=== PATIENT | male | born 1945 | race Caucasian/White ===

== ENCOUNTER 2023-05-24 19:00 | Observation (INO) | payer MEDICARE, BC ==
[~2023-05-24 19:00] MED LIST: Iopamidol 370 76% 100 ML VIAL ONE
[2023-05-24] MEDS ORDERED: Aspirin Chewable 81 MG TAB ONE (19:42)
[2023-05-24 19:47] LABS: #Eosinphils 0.2 10x3/uL (0.0-0.5); #Monocytes 0.8 10x3/uL (0.0-1.1); #Neutrophils 6.2 10x3/uL (1.5-8.4); %Basophils 0.4 % (0.0-2.0); %Eosinophils 2.8 % (0.0-6.0); %Lymphocytes 14.2 % (18.0-47.0); %Monocytes 9.6 % (0.0-10.0); %Neutrophils 72.6 % (40.0-75.0); Hematocrit 37.1 % (38.8-50.0); Hemoglobin 12.1 g/dL (13.5-17.5); Mean Corpuscular HGB CONC 32.6 g/dL (32.0-36.0); Mean Corpuscular Hemoglobin 27.8 pg (27.0-33.0); Mean Corpuscular Volume 85.3 fl (81.2-95.1); Mean Platelet Volume 10.4 fl (7.4-10.4); Platelet Count 197 10x3/uL (150-450); RBC Distribution Width 14.5 % (11.5-14.5); Red Blood Cell (RBC) Count 4.35 10x6/uL (4.32-5.72); White Blood Cell (WBC) Count 8.5 10x3/uL (3.5-10.5)
[2023-05-24 20:00] LABS: ALT (SGPT) 17 U/L (8-55); AST (SGOT) 20 U/L (5-34); Albumin 3.9 g/dL (3.4-4.8); Alkaline Phosphatase 49 U/L (40-110); Anion Gap 16 mmol/L (10-20); BUN (Urea Nitrogen) 13 mg/dL (8.4-25.7); Bilirubin, Total 0.5 mg/dL (0.2-1.2); Calc. Creatinine Clearance 0 mL/min (70-130); Calcium 8.7 mg/dL (7.8-10.44); Carbon Dioxide 20 mmol/L (23-31); Chloride 105 mmol/L (98-107); Estimated GFR 75; Globulin 2.7 g/dL (2.4-3.5); Glucose 138 mg/dL (83-110); Magnesium 1.8 mg/dL (1.6-2.6); Potassium 4.4 mmol/L (3.5-5.1); Protein, Total 6.6 g/dL (5.8-8.1); Sodium 137 mmol/L (136-145)
[2023-05-24] MEDS ORDERED: Acetaminophen 325 MG TAB PO PRN (21:57)
[2023-05-24] MEDS ORDERED: Dextrose 50% Abboject 50 ML SYRINGE SLOW IVP PRN (22:07)
[2023-05-24] MEDS ORDERED: Dextrose 5% in Water 1,000 ML IV PRN (22:07)
[2023-05-24] MEDS ORDERED: Glucagon 1 MG/ML KIT IM PRN (22:07)
[2023-05-24] MEDS ORDERED: HumaLOG 300 UNITS/3 ML VIAL SC PRN ×2 (22:07)
[2023-05-24 23:30] VITALS: BMI 32.8
[2023-05-24] MEDS: HYDROcodone/Acetaminophen 10/325 mg Tablet PO PRN (23:34)
[2023-05-24 23:35] LABS: Iron 29 ug/dL (65-175); Iron Binding Capacity, Total 306 mcg/dL (261-462)
[2023-05-24 23:37] LABS: Actual Bicarbonate (HCO3v) 19.4 mEq/L (22-28); Base Excess -1.4 mEq/L (-2 - +2); Calcium, Ionized (venous) 0.97 mmol/L (1.16-1.32); Chloride (VBG) 106 mmol/L (98-106); Hematocrit-VBG 39 % (42.0-52.0); Hemoglobin (Hb) 13.1 g/dL (12.6-17.4); Potassium (VBG) 4.36 mmol/L (3.70-5.30); Puncture Site Other Site; RapidComm Collect By LAB; Sodium 134.1 mmol/L (133-146); pH (venous) 7.543 (7.32-7.43)
[2023-05-25 02:18] LABS: #Eosinphils 0.2 10x3/uL (0.0-0.5); #Monocytes 0.7 10x3/uL (0.0-1.1); #Neutrophils 4.5 10x3/uL (1.5-8.4); %Basophils 0.3 % (0.0-2.0); %Eosinophils 3.1 % (0.0-6.0); %Lymphocytes 19.1 % (18.0-47.0); %Monocytes 9.7 % (0.0-10.0); %Neutrophils 67.7 % (40.0-75.0); Hematocrit 34.8 % (38.8-50.0); Hemoglobin 11.5 g/dL (13.5-17.5); Mean Corpuscular Volume 84.7 fl (81.2-95.1); Mean Platelet Volume 9.8 fl (7.4-10.4); Platelet Count 186 10x3/uL (150-450); RBC Distribution Width 14.6 % (11.5-14.5); Red Blood Cell (RBC) Count 4.11 10x6/uL (4.32-5.72); White Blood Cell (WBC) Count 6.7 10x3/uL (3.5-10.5)
[2023-05-25 02:38] LABS: ALT (SGPT) 15 U/L (8-55); AST (SGOT) 17 U/L (5-34); Albumin 3.6 g/dL (3.4-4.8); Alkaline Phosphatase 43 U/L (40-110); Anion Gap 14 mmol/L (10-20); BUN (Urea Nitrogen) 13 mg/dL (8.4-25.7); Bilirubin, Total 0.6 mg/dL (0.2-1.2); Calc. Creatinine Clearance 124 mL/min (70-130); Calcium 8.5 mg/dL (7.8-10.44); Carbon Dioxide 22 mmol/L (23-31); Chloride 105 mmol/L (98-107); Estimated GFR 89; Globulin 2.5 g/dL (2.4-3.5); Glucose 149 mg/dL (83-110); Potassium 4.1 mmol/L (3.5-5.1); Protein, Total 6.1 g/dL (5.8-8.1); Sodium 137 mmol/L (136-145)
[2023-05-25 02:44] LABS: Troponin I Less than 0.010 ng/mL (< 0.028)
[2023-05-25] MEDS: HYDROcodone/Acetaminophen 10/325 mg Tablet PO PRN (06:20)
[2023-05-25 06:43] LABS: Troponin I Less than 0.010 ng/mL (< 0.028)
[2023-05-25 08:41] VITALS: TEMP 98.2
[2023-05-25] MEDS ORDERED: Finasteride 5 MG TAB PO SCH (09:00)
[2023-05-25] MEDS ORDERED: Loratadine 10 MG TAB PO SCH (09:00)
[2023-05-25] MEDS ORDERED: Lisinopril 5 MG TAB PO SCH (09:00)
[2023-05-25] MEDS ORDERED: Apixaban 5 MG TAB PO SCH (09:00)
[2023-05-25 10:32] VITALS: BP 117/69
[2023-05-25 13:23] LABS: Hemoglobin A1c 6.4 % (4.0-6.0)
[2023-05-25] MEDS ORDERED: [UNRECOGNIZED DRUG - OTHER] PO SCH (21:00)
[2023-05-25] MEDS ORDERED: Tamsulosin HCl 0.4 MG CAP PO SCH (21:00)
[2023-05-25] MEDS ORDERED: GLUCOSAMINE PO SCH (21:00)
[2023-05-25] MEDS ORDERED: Rosuvastatin 20 MG TAB PO SCH ×2 (21:00)
[2023-05-25] MEDS ORDERED: BOSWELLIA SERRA PO SCH (21:00)
[2023-05-25] MEDS ORDERED: D3 PO SCH (21:00)
== END 2023-05-25 11:25 | disposition home or self-care (01) ==
LOC: CSHERS 19:00 → CSHTELE 21:49
PROVIDERS: ADMIT Internal Medicine; ATTEND Nurse Practitioner Family
DX: I48.91 Unspecified atrial fibrillation (principal); I10 Essential (primary) hypertension; E78.5 Hyperlipidemia, unspecified; E11.9 Type 2 diabetes mellitus without complications; G47.33 Obstructive sleep apnea (adult) (pediatric); M19.90 Unspecified osteoarthritis, unspecified site; N40.0 Benign prostatic hyperplasia without lower urinary tract symptoms; D64.9 Anemia, unspecified; E66.9 Obesity, unspecified; Z68.32 Body mass index [BMI] 32.0-32.9, adult; Z79.82 Long term (current) use of aspirin; Z79.01 Long term (current) use of anticoagulants; Z79.891 Long term (current) use of opiate analgesic; Z79.84 Long term (current) use of oral hypoglycemic drugs; Z79.899 Other long term (current) drug therapy
CPT/HCPCS: 71045; 71275; 80053; 82728; 82805; 82962; 83036; 83540; 83550; 83735; 83880; 84145; 84484 ×3; 85025; 93005; 93306; 93971; 97116; 97535; 99285; G0378 ×3; 36415; 36416; 84443; J1815; Q9967

== ENCOUNTER 2024-04-15 22:03 | Observation (INO) | payer MEDICARE ==
[2024-04-15] MEDS ORDERED: hydrALAZINE 20 MG/ML VIAL ONE (22:28)
[2024-04-15] MEDS ORDERED: Nitroglycerin 2% Ointment 1 INCH/1 GM Packet ONE (22:29)
[2024-04-15 22:30] LABS: #Basophils 0.02 10x3/uL (0.0-0.2); #Eosinphils 0.17 10x3/uL (0.0-0.5); #Monocytes 0.74 10x3/uL (0.0-1.1); #Neutrophils 4.53 10x3/uL (1.5-8.4); %Basophils 0.3 % (0.0-2.0); %Eosinophils 2.3 % (0.0-6.0); %Lymphocytes 25.2 % (18.0-47.0); %Monocytes 10.1 % (0.0-10.0); %Neutrophils 61.8 % (40.0-75.0); Hematocrit 39.3 % (38.8-50.0); Hemoglobin 13.6 g/dL (13.5-17.5); Mean Corpuscular HGB CONC 34.6 g/dL (32.0-36.0); Mean Corpuscular Hemoglobin 29.5 pg (27.0-33.0); Mean Corpuscular Volume 85.2 fL (81.2-95.1); Mean Platelet Volume 10.3 fL (7.4-10.4); Platelet Count 223 10x3/uL (150-450); RBC Distribution Width 14.6 % (11.5-14.5); Red Blood Cell (RBC) Count 4.61 10x6/uL (4.32-5.72); White Blood Cell (WBC) Count 7.3 10x3/uL (3.5-10.5)
[2024-04-15 22:47] LABS: ALT (SGPT) 15 U/L (8-55); AST (SGOT) 17 U/L (5-34); Albumin 3.5 g/dL (3.4-4.8); Alkaline Phosphatase 46 U/L (40-110); Anion Gap 16 mmol/L (10-20); BUN (Urea Nitrogen) 8 mg/dL (8.4-25.7); Bilirubin, Total 0.8 mg/dL (0.2-1.2); Calc. Creatinine Clearance 0 mL/min (70-130); Carbon Dioxide 20 mmol/L (23-31); Chloride 109 mmol/L (98-107); Estimated GFR 81; Globulin 2.8 g/dL (2.4-3.5); Glucose 144 mg/dL (83-110); Potassium 3.5 mmol/L (3.5-5.1); Protein, Total 6.3 g/dL (5.8-8.1); Sodium 141 mmol/L (136-145)
[2024-04-15 22:54] LABS: Troponin I 0.016 ng/mL (< 0.028)
[2024-04-16] MEDS ORDERED: Furosemide 40 MG (4 mL) VIAL ONE (00:01)
[2024-04-16 00:46] LABS: Troponin I 0.024 ng/mL (< 0.028)
[2024-04-16 05:07] VITALS: BMI 34.6
[2024-04-16] MEDS ORDERED: Sodium Chloride 0.9% 1,000 ML IV SCH (05:30)
[2024-04-16] MEDS: Nitroglycerin 2% Ointment 1 INCH/1 GM Packet TOP SCH (06:45)
[2024-04-16 08:11] LABS: Troponin I Less than 0.010 ng/mL (< 0.028)
[2024-04-16] MEDS ORDERED: Enoxaparin 40 MG (0.4 mL) SYRINGE SC SCH (09:00)
[2024-04-16] MEDS: Furosemide 40 MG (4 mL) VIAL SLOW IVP SCH (09:48)
[2024-04-16] MEDS: Tamsulosin HCl 0.4 MG CAP PO SCH (09:49)
[2024-04-16] MEDS: Apixaban 5 MG TAB PO SCH (09:49)
[2024-04-16] MEDS: metFORMIN 500 MG TAB PO SCH (09:49)
[2024-04-16] MEDS: Pantoprazole DR 40 MG TAB PO SCH (09:49)
[2024-04-16] MEDS ORDERED: HumaLOG 300 UNITS/3 ML VIAL SC PRN ×2 (09:55)
[2024-04-16] MEDS ORDERED: Glucagon 1 MG/ML KIT IM PRN (09:55)
[2024-04-16] MEDS ORDERED: Dextrose 50% Abboject 50 ML SYRINGE SLOW IVP PRN (09:55)
[2024-04-16] MEDS ORDERED: Dextrose 5% in Water 1,000 ML IV PRN (09:55)
[2024-04-16] MEDS: Hydrochlorothiazide 25 MG TAB PO SCH (10:24)
[2024-04-16] MEDS: Lisinopril 20 MG TAB PO SCH (10:24)
[2024-04-16] MEDS: Spironolactone 25 MG TAB PO SCH (13:19)
[2024-04-16] MEDS: Potassium Chloride 20 MEQ TAB PO SCH (17:35)
[2024-04-16] MEDS: Carvedilol 3.125 MG TAB PO SCH (17:35)
[2024-04-16] MEDS: Magnesium 2 GM/50 ML(in water) 2 GM in Premix 1 BAG IVPB SCH (17:36)
[2024-04-16] MEDS ORDERED: Ibuprofen 400 MG TAB PO PRN (18:07)
[2024-04-16] MEDS ORDERED: diphenhydrAMINE 25 MG CAP PO PRN (18:07)
[2024-04-16] MEDS ORDERED: Benzocaine/Menthol 1 LOZ LOZ PO PRN (18:07)
[2024-04-16] MEDS ORDERED: Moisturizing Cream (Eucerin) 113 GM JAR TOP PRN (18:07)
[2024-04-16] MEDS ORDERED: Artificial Tear Ophth Sol 15 ML BOT EA EYE PRN (18:07)
[2024-04-16] MEDS ORDERED: Calcium Carbonate 500 MG ChewTAB PO PRN (18:07)
[2024-04-16] MEDS ORDERED: Ondansetron ODT 4 MG TAB PO PRN (18:07)
[2024-04-16] MEDS: Acetaminophen 325 MG TAB PO PRN (18:54)
[2024-04-16] MEDS: Finasteride 5 MG TAB PO SCH (20:30)
[2024-04-16] MEDS: Rosuvastatin 20 MG TAB PO SCH (20:30)
[2024-04-17 04:27] LABS: Anion Gap 16 mmol/L (10-20); BUN (Urea Nitrogen) 12 mg/dL (8.4-25.7); Calc. Creatinine Clearance 112 mL/min (70-130); Calcium 8.4 mg/dL (7.8-10.44); Carbon Dioxide 23 mmol/L (23-31); Chloride 103 mmol/L (98-107); Estimated GFR 77; Glucose 127 mg/dL (83-110); Potassium 3.5 mmol/L (3.5-5.1); Sodium 138 mmol/L (136-145)
[2024-04-17] MEDS: Furosemide 40 MG TAB PO SCH (07:59)
[2024-04-17] MEDS: Spironolactone 25 MG TAB PO SCH (08:00)
[2024-04-17 08:50] VITALS: BP 157/72; TEMP 98
[2024-04-17] MEDS: Hydrochlorothiazide 25 MG TAB PO SCH (08:52)
[2024-04-17] MEDS: Lisinopril 20 MG TAB PO SCH (09:40)
== END 2024-04-17 10:35 | disposition home or self-care (01) ==
LOC: CSHERS 22:03 → CSHTELE 04-16 03:20
PROVIDERS: ADMIT Hospitalist; ATTEND Family Medicine
DX: I16.0 Hypertensive urgency (principal); I44.0 Atrioventricular block, first degree; R07.9 Chest pain, unspecified; E11.9 Type 2 diabetes mellitus without complications; I10 Essential (primary) hypertension; I48.0 Paroxysmal atrial fibrillation; E78.5 Hyperlipidemia, unspecified; G47.33 Obstructive sleep apnea (adult) (pediatric); Z79.01 Long term (current) use of anticoagulants; Z79.84 Long term (current) use of oral hypoglycemic drugs; Z79.899 Other long term (current) drug therapy
CPT/HCPCS: 71045; 80048; 80053; 82962 ×2; 83880 ×2; 84484 ×3; 85025; 93005 ×2; 93306; 96374; 96375; 96376; 99285; G0378 ×3; J0360; J1940; J3475; 36415; 36416